=== PATIENT | male | born 1955 | race Caucasian/White ===

== ENCOUNTER 2016-08-25 14:30 | Inpatient (IN) | payer OTHER ==
[~2016-08-25] VITALS: Ht 165.1 cm; Wt 48.6 kg
[~2016-08-25 14:30] MED LIST: ALBU18HF INHALATION; BUDE6HFA INHALATION; PANT40TA3 PO; PRED20TA PO; TIOT18CA INHALATION
[2016-08-25] MEDS ORDERED: METHYLPREDNISOLONE 125 MG INJ IV STA (14:32)
[2016-08-25] MEDS ORDERED: ALBUTEROL 0.5% (NEB) 2.5 MG/0.5 ML AMP INH STA (14:32)
[2016-08-25] MEDS ORDERED: IPRATROPIUM (NEB) 0.5 MG/2.5 ML AMP INH STA (14:32)
--- NOTE | 2016-08-25 14:36 | ERD ---
ER Documentation Chief Complaint Date/Time DATE: 08/25/16 TIME: 14:34 Chief Complaint HPI Patient is a 61-year-old male who presents with gradual onset constant moderate to severe shortness of breath associated with chest tightness and pain with deep inspiration for approximately 1 hour. The patient states that he has history of emphysema and "weak heart". Patient has been using home nebulizers without relief. Patient continues to smoke 1 pack of cigarettes per day. He reports coughing up a small amount of yellow-green sputum, having intermittent fevers, but no fever for the last 2 days. He denies chest pain at rest. Denies hemoptysis. ROS All systems reviewed and are negative except as per history of present illness. Medications Home Meds Reported Medications Budesonide-Formoterol Fumarate* (Symbicort*) 160-4.5 Hfa.aer.ad, 2 PUFF INHALATION BID, #1 EACH 11/24/15 Tiotropium [place]* (Spiriva*) 18 Mcg Cap.w.dev, 1 CAP INHALATION DAILY, #30 CAP 11/24/15 Pantoprazole* (Protonix*) 40 Mg Tablet.dr, 40 MG PO DAILY, TAB 11/24/15 Albuterol Sulfate* (Ventolin HFA*) 18 Gm Hfa.aer.ad, 2 PUFF INHALATION Q6H, #1 INHALER 11/24/15 Discontinued Scripts Prednisone* (Prednisone*) 20 Mg Tab, 40 MG PO DAILY, #4 TAB Prov:TOMABA DO 01/11/16 Albuterol Sulfate* (Ventolin HFA*) 18 Gm Hfa.aer.ad, 2 PUFF INHALATION Q4H, #1 INHALER Prov:ABA SANTOS DO 01/11/16 Allergies Allergies: Coded Allergies: No Known Allergy (Unverified , 08/25/16) PMhx/Soc Past medical history: Emphysema, unknown cardiac history (denies PA or CHF) Past surgical history: Remote history of leg surgery Social history: Smokes 1 pack of cigarettes per day, denies alcohol or illicit drugs. Hx Alcohol Use: Yes Hx Substance Use: No Hx Tobacco Use: Yes FmHx Family History: No coronary disease, No diabetes Physical Exam Vitals Vital Signs Date Time Temp Pulse Resp B/P Pulse Ox O2 Delivery O2 Flow Rate FiO2 08/25/16 18:03 104 20 126/88 100 Mask 15.0 08/25/16 17:22 104 19 92 21 08/25/16 17:07 104 20 144/84 92 Room Air 08/25/16 15:09 120 20 100 Mask 15.0 08/25/16 15:02 Simple Mask 15 08/25/16 15:02 Simple Mask 15.0 08/25/16 14:49 120 19 94 21 08/25/16 14:47 98.0 120 30 155/104 99 Physical Exam Const: Alert, in moderate distress Head: Atraumatic Eyes: Normal Conjunctiva, no pallor or icterus ENT: Normal External Ears, Nose and Mouth. Mucous membranes moist Neck: Full range of motion..~ No meningismus. No JVD Resp: Significantly increased work of breathing, speaks in 3 word sentences, prolonged expiration, supraclavicular retractions, tripoding, diffuse wheezes Cardio: Regular rate and rhythm, no murmurs Abd: Soft, non tender, non distended. Normal bowel sounds Skin: No petechiae or rashes Back: No midline or flank tenderness Ext: No cyanosis, or edema Neur: Awake and alert, cranial nerves II through XII intact bilaterally, moves and feels 4 extremities appropriately. Psych: Normal Mood and Affect Results 24 hrs Laboratory Tests Test 08/25/16 15:26 Blood Gas Specimen Source Blood venous Arterial Blood Date Drawn 08/25/2016 3:48:37 PM Arterial Blood pH (Temp corrected) 7.409 Arterial Blood pCO2 (Temp correct) 50.5mmhg Arterial Blood pO2 (Temp corrected) 42.2mmHG Arterial Blood HCO3 31.2mmol/L Arterial Blood Base Excess 5.2mmol/L Arterial Blood Oxygen Saturation 76.2mmHG Turner Test N/A Arterial Blood Gas Puncture Site OTHER Arterial Blood Carboxyhemoglobin 2.2% Arterial Blood Methemoglobin 0.4% Blood Gas A-a O2 Differential 177.7mmHg Oxyhemoglobin Percent 74.2% Total Hemoglobin 16.4g/dl Blood Gas Temperature 37.0C Blood Gas Modality MASK - SIMPLE FiO2 39.0% Blood Gas Critical Value Read Back [facility] Blood Gas Notified Whom [facility] Blood Gas Notified Time 08/25/2016 3:54:02 PM Current Medications Medications (Trade) Dose Ordered Sig/Michael Route PRN Reason Start Time Stop Time Status Last Admin Dose Admin Ipratropium [place] (Atrovent 0.02% (Neb)) 0.5 mg ONCE STAT INH 08/25/16 14:32 08/25/16 14:34 DC 08/25/16 14:43 Albuterol (Proventil 0.5% (Neb)) 15 mg ONCE STAT INH 08/25/16 14:32 08/25/16 14:34 DC 08/25/16 14:43 Methylprednisolone Sodium Succinate 125 mg 125 mg ONCE STAT IV 08/25/16 14:32 08/25/16 14:34 DC 08/25/16 14:51 Magnesium Sulfate (Magnesium Sulfate 2 Gm/50 ml) 50 ml @ 25 mls/hr ONCE ONCE IVPB 08/25/16 15:00 08/25/16 16:59 DC 08/25/16 14:51 Morphine Sulfate (morphine) 4 mg ONCE STAT IV 08/25/16 15:46 08/25/16 15:47 DC 08/25/16 15:53 Albuterol (Proventil 0.083% (Neb)) 5 mg ONCE STAT HHN 08/25/16 17:08 08/25/16 17:09 DC 08/25/16 17:20 Ondansetron HCl (Zofran Inj) 4 mg ER BRIDGE PRN IV NAUSEA AND/OR VOMITING 08/25/16 18:00 08/26/16 17:59 Acetaminophen 650 mg 650 mg ER BRIDGE PRN PO MILD PAIN/FEVER 08/25/16 18:00 08/26/16 17:59 Azithromycin (Zithromax 500mg/ NS (Pmx)) 250 ml @ 250 mls/hr ONCE ONCE IVPB 08/25/16 18:00 08/25/16 18:59 08/25/16 18:00 IV Flush (NS 3 ml) 3 ml PER PROTOCOL IV 08/25/16 18:30 UNV Ondansetron HCl (Zofran Inj) 4 mg Q6H PRN IV NAUSEA AND/OR VOMITING 08/25/16 18:30 UNV Acetaminophen (Tylenol Tab) 650 mg Q6H PRN PO PAIN LEVEL 1-3 OR FEVER 08/25/16 18:30 UNV Acetaminophen/ Hydrocodone Bitart ([place] (5/325)) 1 tab Q6H PRN PO MODERATE PAIN LEVEL 4-6 08/25/16 18:30 UNV Morphine Sulfate (morphine) 2 mg Q4H PRN IV SEVERE PAIN LEVEL 7-10 08/25/16 18:30 UNV Docusate Sodium (Colace) 100 mg Q12H PRN PO CONSTIPATION 08/25/16 18:30 UNV Magnesium Hydroxide (Milk Of Mag) 30 ml DAILY PRN PO CONSTIPATION 08/25/16 18:30 UNV Sodium Biphosphate/ Sodium Phosphate (Fleet Enema) 133 ml DAILY PRN [place] CONSTIPATION 08/25/16 18:30 UNV Heparin Sodium (Porcine) 5000 unit 5,000 unit Q12 SC 08/25/16 21:00 UNV Sodium Chloride (1/2 NS) 1,000 ml @ 75 mls/hr [id number] IV 08/25/16 18:04 UNV Lorazepam (Ativan) 0.5 mg Q6H PRN IV ANXIETY 08/25/16 18:30 UNV Albuterol/ Ipratropium 3 ml 3 ml Q4H RESP THERAPY HHN 08/25/16 21:00 UNV Levofloxacin/ Dextrose (Levaquin 750 Mg/ D5W 150 ml (Pmx)) 150 ml @ 100 mls/hr DAILY IVPB 08/26/16 09:00 UNV Hydralazine HCl (Apresoline) 10 mg Q6H PRN IV ELEVATED BLOOD PRESSURE 08/25/16 18:30 UNV Clonidine (Catapres) 0.1 mg Q6H PRN PO ELEVATED BLOOD PRESSURE 08/25/16 18:30 UNV Nitroglycerin (Nitroglycerin (Sl Tab) 0.4 Mg) 1 tab Q5M PRN SL ANGINA 08/25/16 18:30 UNV Pantoprazole (Protonix Tab) 40 mg DAILY PO 08/26/16 09:00 UNV Miscellaneous Information 2 puff BID INHALATION 08/25/16 21:00 UNV Methylprednisolone Sodium Succinate (Solu-Medrol) 80 mg Q6 IV 08/25/16 18:30 UNV Procedures/MDM EKG read by me: Time 1458, rate 114 Rhythm: Sinus tachycardia [place]: Normal Intervals: Normal ST-T waves: no ischemic changes Ectopy: No Q-waves: No Impression: Sinus tachycardia, biatrial enlargement, no arrhythmia or ischemia MDM: Patient is a 61-year-old male with emphysema who presents with acute dyspnea. He has signs of prolonged expiration and diffuse wheezes. There is no infiltrate on chest x-ray. EKG is nonischemic and pain is suggestive of chest wall pain. There are no features suggestive of PE. Patient was treated aggressively with continuous nebs for more than 1 hour, IV steroids, and magnesium. He was given azithromycin empirically. VBG shows mild CO2 retention. Serial examinations were performed, and the patient is somewhat improved but still has significant subjective dyspnea and prolonged expirations. O2 sat on room air is 90-91%. I discussed the case with Dr. Jason, who will admit the patient for further treatment. Critical Care: Time: 35 minutes exlcuding all billable procedures. Treatments/Evaluations: Close monitoring and treatment of unstable vital signs, cardiorespiratory, and neurologic status, while maintaining tight balance of fluid, respiratory, and cardiac interventions. Departure Diagnosis: Primary Impression: COPD exacerbation Condition: DAREN Hernandez MD August 25, 2016 14:36
[2016-08-25] MEDS ORDERED: MAGNESIUM SULFATE 2 GM/50 ML 50 ML IVPB ONE (15:00)
--- NOTE | 2016-08-25 15:02 | RADRPT ---
PROCEDURE: XR Chest. CLINICAL INDICATION: Shortness of breath TECHNIQUE: Single frontal view of the chest was obtained COMPARISON: 01/11/2016 FINDINGS: The heart and mediastinum are within normal limits. The lungs remain hyperinflated. The lungs are otherwise clear. There is no pleural effusion or pneumothorax. The bones and soft tissue show no acute change. IMPRESSION: Stable pulmonary hyperinflation. Otherwise, no significant abnormalities are identified. RPTAT:AAJJ Physician Patrick Date Time Electronically viewed and signed by El Joseph Physician on 08/25/2016 15:02 PATRICK/
[2016-08-25] MEDS ORDERED: morphine 4 MG/ML VIAL IV STA (15:46)
[2016-08-25 15:54] LABS: AADO2 Arterial 177.7 mmHg (7.0-24.0); Arterial Base Excess 5.2 mmol/L (-3.0-3); Arterial COHb 2.2 % (0.0-3.0); Arterial Fraction of Oxyhgb 74.2 % (93.0-99.0); Arterial HCO3 31.2 mmol/L (22.0-26.0); Arterial MetHb 0.4 % (0.0-1.5); Arterial Total Hemglobin 16.4 g/dl (12.0-18.0); MODE MASK - SIMPLE; Sample Type Blood venous
[2016-08-25] MEDS ORDERED: ALBUTEROL 0.083% (NEB) 2.5 MG/3 ML AMP HHN STA (17:08)
[2016-08-25] MEDS ORDERED: AZITHROMYCIN 500MG/NS (PMX) 250 ML IVPB ONE (18:00)
[2016-08-25] MEDS ORDERED: ONDANSETRON 4 MG INJ IV PRN ×2 (18:00→18:30)
[2016-08-25] MEDS ORDERED: ACETAMINOPHEN 325 MG TAB PO PRN ×2 (18:00→18:30)
[2016-08-25 18:14] LABS: ADD SCAN DIFF NO
[2016-08-25 18:17] LABS: ABNORMAL IP MESSAGE 1; BASOPHIL # 0.1 10^3/ul (0.0-0.1); BASOPHILS % 0.5 % (0.0-2.0); HEMATOCRIT 46.2 % (42.0-52.0); HEMOGLOBIN 15.6 g/dl (14.0-18.0); LYMPHOCYTES # 3.6 10^3/ul (0.8-2.9); LYMPHOCYTES % 17.5 % (15.0-51.0); MEAN CORPUSCULAR HEMOGLOBIN 31.8 pg (29.0-33.0); MEAN CORPUSCULAR HGB CONC 33.8 g/dl (32.0-37.0); MEAN CORPUSCULAR VOLUME 94.3 fl (82.0-101.0); MEAN PLATELET VOLUME 9.3 fl (7.4-10.4); MONOCYTES % 9.5 % (0.0-11.0); NEUTROPHIL # 14.6 10^3/ul (1.6-7.5); NEUTROPHILS % 70.5 % (39.0-77.0); PLATELET COUNT 354 10^3/UL (140-415); RED CELL DISTRIBUTION WIDTH 14.3 % (11.5-14.5); WHITE BLOOD COUNT 20.7 10^3/ul (4.8-10.8)
[2016-08-25 18:23] LABS: CALCIUM 8.6 mg/dl (8.4-10.2); CREATININE 0.72 mg/dl (0.61-1.24); POTASSIUM 4.6 mmol/L (3.5-5.1)
[2016-08-25] MEDS ORDERED: DOCUSATE SODIUM 100 MG CAP PO PRN (18:30)
[2016-08-25] MEDS ORDERED: MAGNESIUM HYDROXIDE 30ML CUP PO PRN (18:30)
[2016-08-25] MEDS ORDERED: hydrALAzine 20 MG INJ IV PRN (18:30)
[2016-08-25] MEDS ORDERED: NA PHOSPHATE/BIPHOS 133 ML ENEMA PR PRN (18:30)
[2016-08-25] MEDS ORDERED: NITROGLYCERIN (SL) 0.4 MG TAB SL PRN (18:30)
[2016-08-25] MEDS ORDERED: NACL 0.9% 3 ML SYG IV SCH (18:30)
--- NOTE | 2016-08-25 20:26 | HP ---
DATE OF ADMISSION: 08/25/2016 CHIEF COMPLAINT: This is a 61-year-old with chief complaint of shortness of breath. HISTORY OF PRESENT ILLNESS: A 61-year-old male with past medical history of COPD and a longstanding smoking history, still a current smoker, who has been having shortness of breath and some chest tig htness that has been going on for the last 24 hours. He had some nausea symptoms as well and some p ain with deep inspiration for about 1 hour as well. He apparently has been using home nebulizer wit hout relief. Continues to smokes cigarettes daily. He also had some mild yellow-green sputum as we ll. Denies any headache, dizziness, or loss of consciousness. No upper or lower GI bleeding. No f bobby or chills. No diarrhea or constipation. When he came in today, he was given breathing treatm ents as well as Solu-Medrol and magnesium. He was found to have significant wheezing on exam and si gns of COPD exacerbation. PAST MEDICAL HISTORY: As above. ALLERGIES: NO KNOWN DRUG ALLERGIES. MEDICATIONS AT HOME: 1. Ventolin HFA inhaled q.6h. 2. Spiriva inhaled daily. 3. Symbicort 2 puffs inhaled b.i.d. 4. Protonix 40 mg daily. PAST SURGICAL HISTORY: Had some kind of leg surgery many years ago. FAMILY HISTORY: Noncontributory. SOCIAL HISTORY: Smokes 1 pack of cigarettes a day for the last 50 years. Denies any IV drug abuse. He does drink alcohol socially. PHYSICAL EXAMINATION: VITAL SIGNS: T-max 98.0, pulse 104 to 120, respirations 19 to 30, blood pressure 126 to 150 systoli c over 88 to 104 and saturating at 92% on room air. GENERAL: The patient is lying in bed in mild distress but alert. HEENT: Pupils equal, round, react to light. Extraocular muscles intact. NECK: Supple, no thyromegaly. LUNGS: Increased work of breathing. There are some wheezes heard bilaterally in the bases. CARDIOVASCULAR: S1, S2 heard. No rubs or gallops. ABDOMEN: Soft, nontender, nondistended. Normal bowel sounds. No rebound or guarding. MUSCULOSKELETAL: No lower extremity bilaterally. NEUROLOGIC: No focal deficits. LABORATORIES: WBC 20.7, hemoglobin 15.6, hematocrit 46.2, platelets of 354. The basic metabolic pa silvio was normal. IMAGING: Chest x-ray showed this stable pulmonary hyperinflation, otherwise no significant abnormal ities. ASSESSMENT AND PLAN: A 61-year-old coming in a chronic obstructive pulmonary disease exacerbation. 1. Chronic obstructive pulmonary disease. Admit the patient to med/surg floor, put him on DuoNeb t reatments, IV steroids, and antibiotics given his leukocytosis. Check TSH, A1c, lipid panel, and IV fluids as well. Check labs in the morning. 2. Smoking history. He is counseled about cessation. We will put him on nicotine patch. 3. Gastrointestinal prescription: Proton pump inhibitors. 4. Deep venous thrombosis prophylaxis: Heparin subcutaneously. Dictated By: SRAVANI LEWIS Conf#: [id number] DID#: [id number]
[2016-08-25 20:44] VITALS: TEMP 98
[2016-08-25] MEDS ORDERED: NON-FORMULARY/PATIENT OWN MED (Budesonide-Formoterol Fumarate* (Symbicort*) 2 PUFF) INHALATION SCH (21:00)
[2016-08-25 21:31] VITALS: PULSE 112
[2016-08-25] MEDS: ALBUTEROL/IPRATROPIUM (NEB) 3 ML AMP HHN SCH (21:41)
[2016-08-25 21:45] VITALS: Ht 165.1 cm; Wt 48.6 kg
[2016-08-25] MEDS: morphine 2 MG INJ IV PRN (21:45)
[2016-08-25] MEDS: METHYLPREDNISOLONE 125 MG INJ IV SCH ×2 (21:47→22:37)
[2016-08-25] MEDS: LORAZEPAM 2 MG INJ IV PRN (21:55)
[2016-08-25] MEDS: SALMETEROL/FLUTICASONE 250/50 INHA INH SCH (22:04)
[2016-08-25] MEDS: HEPARIN 5,000 UNIT/0.5 ML VIAL SC SCH (22:04)
[2016-08-25] MEDS: NICOTINE (21 MG/24 HR) PATCH TRANSDERM SCH (22:04)
[2016-08-25] MEDS: SOD CHLORIDE 0.45% 1,000 ML IV SCH (22:30)
[2016-08-25 23:05] VITALS: BP 120/64; RESP 20
[2016-08-26] VITALS (11 sets, daily range): BP systolic 113–125; BP diastolic 65–74; PULSE 86–104; RESP 18–20
[2016-08-26] MEDS: ALBUTEROL/IPRATROPIUM (NEB) 3 ML AMP HHN SCH ×6 (00:44→20:12)
[2016-08-26] MEDS: PANTOPRAZOLE (EC) 40 MG TAB PO SCH (05:36)
[2016-08-26] MEDS: METHYLPREDNISOLONE 125 MG INJ IV SCH ×3 (05:36→17:30)
[2016-08-26] MEDS: morphine 2 MG INJ IV PRN ×5 (05:41→22:07)
[2016-08-26] MEDS: SOD CHLORIDE 0.45% 1,000 ML IV SCH ×2 (06:17→17:30)
[2016-08-26] MEDS: HEPARIN 5,000 UNIT/0.5 ML VIAL SC SCH ×2 (07:48→20:59)
[2016-08-26 07:54] LABS: ADD SCAN DIFF NO
[2016-08-26 07:58] LABS: CHOL/HDL RATIO 1.9 RATIO
[2016-08-26 07:59] LABS: BASOPHILS % 0.1 % (0.0-2.0); HEMOGLOBIN 13.5 g/dl (14.0-18.0); LYMPHOCYTES # 0.9 10^3/ul (0.8-2.9); LYMPHOCYTES % 6.2 % (15.0-51.0); MEAN CORPUSCULAR HEMOGLOBIN 31.4 pg (29.0-33.0); MEAN CORPUSCULAR HGB CONC 34.6 g/dl (32.0-37.0); MEAN CORPUSCULAR VOLUME 90.7 fl (82.0-101.0); MEAN PLATELET VOLUME 8.9 fl (7.4-10.4); MONOCYTE # 0.5 10^3/ul (0.3-0.9); MONOCYTES % 3.4 % (0.0-11.0); NEUTROPHIL # 12.7 10^3/ul (1.6-7.5); NEUTROPHILS % 88.1 % (39.0-77.0); PLATELET COUNT 304 10^3/UL (140-415); WHITE BLOOD COUNT 14.5 10^3/ul (4.8-10.8)
[2016-08-26] MEDS: SALMETEROL/FLUTICASONE 250/50 INHA INH SCH ×2 (08:00→20:54)
[2016-08-26 08:26] LABS: THYROID STIMULATING HORMONE 0.182 MIU/L (0.465-4.680)
[2016-08-26] MEDS: NICOTINE (21 MG/24 HR) PATCH TRANSDERM SCH (09:00)
[2016-08-26 09:19] LABS: CALCIUM 9.2 mg/dl (8.4-10.2); CREATININE 0.86 mg/dl (0.61-1.24); MAGNESIUM 2.3 mg/dl (1.7-2.5); PHOSPHORUS 4.5 mg/dl (2.5-4.9); POTASSIUM 4.6 mmol/L (3.5-5.1)
[2016-08-26] MEDS: LEVOFLOXACIN 750MG/D5W (PMX) 150 ML IVPB SCH (09:35)
[2016-08-26] MEDS ORDERED: ALBUTEROL/IPRATROPIUM (NEB) 3 ML AMP HHN PRN (12:00)
[2016-08-26] MEDS: LORAZEPAM 2 MG INJ IV PRN ×3 (12:07→20:55)
--- NOTE | 2016-08-26 14:36 | PN ---
Date/Time of Note Date/Time of Note DATE: 08/26/16 TIME: 14:34 Assessment/Plan VTE Prophylaxis VTE Prophylaxis Intervention: heparin Lines/Catheters IV [facility] Peripheral IV Assessment/Plan Chief Complaint/Hosp Course ASSESSMENT AND PLAN: 61-year-old coming in a chronic obstructive pulmonary disease exacerbation. 1. Chronic obstructive pulmonary disease - slowly improving - continue DuoNeb treatments, IV steroids, and antibiotics given his leukocytosis. - f/u TSH, A1c, lipid panel, and IV fluids as well. Check labs in the morning. 2. Smoking history - nicotine patch. 3. Gastrointestinal prescription: Proton pump inhibitors. 4. Deep venous thrombosis prophylaxis: Heparin subcutaneously. Problems: Subjective 24 Hr Interval Summary Free Text/Dictation Pt has some less SOB. Exam/Review of Systems Vital Signs Vitals Vital Signs Date Time Temp Pulse Resp B/P Pulse Ox O2 Delivery O2 Flow Rate FiO2 08/26/16 13:20 100 20 95 Nasal Cannula 2.0 08/26/16 12:18 97.9 117/74 08/26/16 00:45 21 Intake and Output 08/25/16 08/25/16 08/26/16 15:00 23:00 07:00 Intake Total 300 ml 30 ml Balance 300 ml 30 ml Exam GENERAL: The patient is lying in bed in mild distress but alert. HEENT: Pupils equal, round, react to light. Extraocular muscles intact. NECK: Supple, no thyromegaly. LUNGS: less wheezes heard bilaterally in the bases. CARDIOVASCULAR: S1, S2 heard. No rubs or gallops. ABDOMEN: Soft, nontender, nondistended. Normal bowel sounds. No rebound or guarding. MUSCULOSKELETAL: No lower extremity bilaterally. NEUROLOGIC: No focal deficits. Results Result Diagram: 08/26/16 0651 08/26/16 0651 Results 24 hrs Laboratory Tests Test 08/25/16 14:47 08/25/16 15:26 08/26/16 06:51 White Blood Count 20.7 #H 14.5 #H Red Blood Count 4.90 4.30 L Hemoglobin 15.6 13.5 L Hematocrit 46.2 39.0 L Mean Corpuscular Volume 94.3 90.7 Mean Corpuscular Hemoglobin 31.8 31.4 Mean Corpuscular Hemoglobin Concent 33.8 34.6 Red Cell Distribution Width 14.3 14.0 Platelet Count 354 304 Mean Platelet Volume 9.3 # 8.9 Neutrophils % 70.5 88.1 H Lymphocytes % 17.5 6.2 L Monocytes % 9.5 3.4 Eosinophils % 0.0 0.0 Basophils % 0.5 0.1 Nucleated Red Blood Cells % 0.0 0.0 Neutrophils # 14.6 H 12.7 H Lymphocytes # 3.6 H 0.9 Monocytes # 2.0 H 0.5 Eosinophils # 0.0 0.0 Basophils # 0.1 0.0 Nucleated Red Blood Cells # 0.0 0.0 Sodium Level 136 131 L Potassium Level 4.6 4.6 Chloride Level 101 97 Carbon Dioxide Level 29 28 Anion Gap 11 11 Blood Urea Nitrogen 22 H 32 H Creatinine 0.72 0.86 Glucose Level 68 L 158 Calcium Level 8.6 9.2 Free Thyroxine 1.30 Blood Gas Specimen Source Blood venous Arterial Blood Date Drawn 08/25/2016 3:48:37 PM Arterial Blood pH (Temp corrected) 7.409 Arterial Blood pCO2 (Temp correct) 50.5 H Arterial Blood pO2 (Temp corrected) 42.2 *L Arterial Blood HCO3 31.2 H Arterial Blood Base Excess 5.2 H Arterial Blood Oxygen Saturation 76.2 L Turner Test N/A Arterial Blood Gas Puncture Site OTHER Arterial Blood Carboxyhemoglobin 2.2 Arterial Blood Methemoglobin 0.4 Blood Gas A-a O2 Differential 177.7 H Oxyhemoglobin Percent 74.2 L Total Hemoglobin 16.4 Blood Gas Temperature 37.0 Blood Gas Modality MASK - SIMPLE FiO2 39.0 Blood Gas Critical Value Read Back [facility] Blood Gas Notified Whom [facility] Blood Gas Notified Time 08/25/2016 3:54:02 PM Hemoglobin A1c 6.1 H Phosphorus Level 4.5 Magnesium Level 2.3 Triglycerides Level 76 Cholesterol Level 194 LDL Cholesterol, Calculated 78 HDL Cholesterol 101 H Cholesterol/HDL Ratio 1.9 Thyroid Stimulating Hormone (TSH) 0.182 L Medications Medications Current Medications Ondansetron HCl (Zofran Inj) 4 mg Q6H PRN IV NAUSEA AND/OR VOMITING; Start at 18:30 Acetaminophen (Tylenol Tab) 650 mg Q6H PRN PO PAIN LEVEL 1-3 OR FEVER; Start at 18:30 Acetaminophen/ Hydrocodone Bitart ([place] (5/325)) 1 tab Q6H PRN PO MODERATE PAIN LEVEL 4-6; Start 08/25/16 at 18:30 Morphine Sulfate (morphine) 2 mg Q4H PRN IV SEVERE PAIN LEVEL 7-10 Last administered on 08/26/16 13:46; Admin Dose 2 MG; Start 08/25/16 at 18:30 Docusate Sodium (Colace) 100 mg Q12H PRN PO CONSTIPATION; Start 08/25/16 at 18: 30 Magnesium Hydroxide (Milk Of Mag) 30 ml DAILY PRN PO CONSTIPATION; Start at 18:30 Sodium Biphosphate/ Sodium Phosphate (Fleet Enema) 133 ml DAILY PRN [place] CONSTIPATION; Start 08/25/16 at 18:30 Heparin Sodium (Porcine) 5000 unit 5,000 unit Q12 SC ; Start 08/25/16 at 21:00 Sodium Chloride (1/2 NS) 1,000 ml @ 75 mls/hr [id number] IV Last administered on 08/25/16 22:30; Admin Dose 75 MLS/HR; Start 08/25/16 at 18:04 Lorazepam 0.5 mg 0.5 mg Q6H PRN IV ANXIETY Last administered on 08/26/16 12:07 ; Admin Dose 0.5 MG; Start 08/25/16 at 18:30 Levofloxacin/ Dextrose (Levaquin 750 Mg/ D5W 150 ml (Pmx)) 150 ml @ 100 mls/hr DAILY IVPB Last administered on 08/26/16 09:35; Admin Dose 100 MLS/HR; Start 08/26/16 at 09:00 Hydralazine HCl (Apresoline) 10 mg Q6H PRN IV ELEVATED BLOOD PRESSURE; Start at 18:30 Clonidine (Catapres) 0.1 mg Q6H PRN PO ELEVATED BLOOD PRESSURE; Start 08/25/16 at 18:30 Nitroglycerin (Nitroglycerin (Sl Tab) 0.4 Mg) 1 tab Q5M PRN SL ANGINA Last administered on 08/25/16 20:42; Admin Dose 1 TAB; Start 08/25/16 at 18:30 Pantoprazole (Protonix Tab) 40 mg DAILY@06 PO Last administered on 08/26/16 05 :36; Admin Dose 40 MG; Start 08/26/16 at 06:00 Methylprednisolone Sodium Succinate (Solu-Medrol) 80 mg Q6 IV Last administered on 08/26/16 12:00; Admin Dose 80 MG; Start 08/25/16 at 18:30 Nicotine (Nicoderm 21 Mg/ 24hr) 1 patch DAILY TRANSDERM ; Start 08/25/16 at 19: 30 Salmeterol Xinafoate/ Fluticasone (Advair 250/50 Diskus) 1 inh BID INH Last administered on 08/26/16 08:00; Admin Dose 1 INH; Start 08/25/16 at 21:00 SRAVANI LINDA August 26, 2016 14:36
--- NOTE | 2016-08-26 17:18 | RADRPT ---
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 Physician: SRAVANI LINDA Quality: Technically Difficult Study Procedures: Transthoracic echocardiogram with 2D, M-Mode, and Doppler examination. Indications: Shortness of breath. 2D/M Mode Doppler Measurement Value Normal Ranges Measurement Value Normal Ranges AoR Diam MM 3.2 cm AV Peak Erlin 0.9 m/sec LVIDd 2D 4.3 3.5 - 5.6 cm AV Peak PG 3.3 mmHg LVIDs 2D 3.2 2.1 - 4.1 cm LVOT Peak [place]lin 0.7 m/sec LVPWd 2D 0.6 0.6 - 1.1 cm LVOT Peak PG 1.9 mmHg IVSd 2D 0.8 0.6 - 1.1 cm MV E Peak Erlin 0.6 m/sec EDV 2D 82.8 cm3 MV A Peak Erlin 0.8 m/sec ESV 2D 33.9 cm3 MV E/A 0.7 LA Dimen 2D 2.8 2.3 - 4.0 cm MV Decel Time 238 msec MV Decel [place] 2 MV E/A 0.7 PV Peak Erlin 1.0 m/sec PV Peak PG 4.0 mmHg Findings Left Ventricle: Normal left ventricular cavity size. Normal left ventricular wall thickness. Ejection fraction is visually estimated at 50 %. Tissue Doppler/Mitral Doppler indices are within normal limits. Right Ventricle: Normal right ventricular size. Normal right ventricular systolic function. Left Atrium: The left atrium is normal in size. Right Atrium: The right atrium is normal in size. Atrial Septum: Normal atrial septum. Mitral Valve: Normal appearance of the mitral valve. No mitral valve regurgitation is seen. Aortic Valve: Normal appearance of the aortic valve. No significant aortic stenosis or insufficiency. Tricuspid Valve: Normal appearance and function of the tricuspid valve with trace physiologic regurgitation. Unable to obtain RVSP due to minimal presence of tricuspid regurgitation. Pulmonic Valve: Normal pulmonic valve appearance, imaged from subcostal images. No evidence of pulmonic regurgitation. Pericardium: Normal pericardium with no significant pericardial effusion. Aorta: Normal aortic root. IVC: Normal size and normal respiratory collapse consistent with normal right atrial pressure. Pulmonary Artery: Normal pulmonary artery size. Conclusions 1.Normal left ventricular cavity size. Normal left ventricular wall thickness. Ejection fraction is visually estimated at 50 %. Tissue Doppler/Mitral Doppler indices are within normal limits. 2.No significant valvular stenosis or regurgitation seen. 3.Unable to obtain RVSP due to minimal presence of tricuspid regurgitation. RA pressure is 3 mmHg. Electronically Signed By: Jeus Lal 26-Aug-2016 17:16:58 -0700 Patient Name: HILDA GIBSON Study Date: 26-Aug-2016 [id number]
[2016-08-26] MEDS: HYDROCODONE/APAP (5/325) TAB PO PRN (20:55)
[2016-08-27] VITALS (13 sets, daily range): BP systolic 107–124; BP diastolic 55–74; PULSE 95–109; RESP 18–20
[2016-08-27] MEDS: METHYLPREDNISOLONE 125 MG INJ IV SCH ×4 (00:35→17:46)
[2016-08-27] MEDS: ALBUTEROL/IPRATROPIUM (NEB) 3 ML AMP HHN SCH ×6 (01:24→20:06)
[2016-08-27] MEDS: morphine 2 MG INJ IV PRN ×5 (02:05→20:46)
[2016-08-27] MEDS: PANTOPRAZOLE (EC) 40 MG TAB PO SCH (04:19)
[2016-08-27] MEDS: HYDROCODONE/APAP (5/325) TAB PO PRN (04:19)
[2016-08-27] MEDS: LEVOFLOXACIN 750MG/D5W (PMX) 150 ML IVPB SCH (08:00)
[2016-08-27] MEDS: LORAZEPAM 2 MG INJ IV PRN ×2 (08:00→15:14)
[2016-08-27] MEDS: NICOTINE (21 MG/24 HR) PATCH TRANSDERM SCH ×2 (08:01→12:12)
[2016-08-27] MEDS: SALMETEROL/FLUTICASONE 250/50 INHA INH SCH ×2 (08:01→20:46)
[2016-08-27] MEDS: HEPARIN 5,000 UNIT/0.5 ML VIAL SC SCH ×2 (08:01→20:46)
[2016-08-27 08:19] LABS: ADD SCAN DIFF NO
[2016-08-27 08:28] LABS: ABNORMAL IP MESSAGE 1; HEMATOCRIT 36.3 % (42.0-52.0); HEMOGLOBIN 12.6 g/dl (14.0-18.0); MEAN CORPUSCULAR HEMOGLOBIN 32.2 pg (29.0-33.0); MEAN CORPUSCULAR HGB CONC 34.7 g/dl (32.0-37.0); MEAN CORPUSCULAR VOLUME 92.8 fl (82.0-101.0); MEAN PLATELET VOLUME 8.8 fl (7.4-10.4); PLATELET COUNT 254 10^3/UL (140-415); RED BLOOD COUNT 3.91 10^6/ul (4.70-6.10); RED CELL DISTRIBUTION WIDTH 13.9 % (11.5-14.5); WHITE BLOOD COUNT 29.2 10^3/ul (4.8-10.8)
[2016-08-27 08:45] LABS: POTASSIUM 4.6 mmol/L (3.5-5.1)
[2016-08-27 08:48] LABS: CREATININE 0.69 mg/dl (0.61-1.24)
[2016-08-27] MEDS: SOD CHLORIDE 0.45% 1,000 ML IV SCH ×2 (09:42→20:47)
[2016-08-27 09:49] LABS: LYMPHOCYTES # 0.9 10^3/ul (0.8-2.9); MONOCYTE # 1.5 10^3/ul (0.3-0.9); NEUTROPHIL # 26.9 10^3/ul (1.6-7.5)
--- NOTE | 2016-08-27 17:07 | PN ---
DATE: 08/27/2016 TIME OF EVALUATION: 1600 hours. SUBJECTIVE: Still having significant shortness of breath. Complains of some left chest wall pain. OBJECTIVE DATA: VITAL SIGNS: Temperature 98.2, pulse rate 95, respiratory rate 18, blood pressure 110/63, oxygen saturation 90% on low flow O2. GENERAL: This is a frail-looking elderly male lying in bed in mild to moderate respiratory distress. HEENT: Head normocephalic and atraumatic. Eyes: Anicteric sclerae. Conjunctivae clear. ENT: Nasal septum is midline. Oral mucosa is moist. NECK: Supple. No JVD noticed. RESPIRATORY: Bilateral diminished breath sounds. Bilateral coarse rales heard. Use of accessory muscles of respiration. CARDIAC: Regular rate and rhythm. S1, S2. ABDOMEN: Soft, nontender and nondistended. Bowel sounds positive in all 4 quadrants. GENITOURINARY: Deferred. EXTREMITIES: No cyanosis. Clubbing of the bilateral digits of upper extremities. No edema. Peripheral pulses palpable. NEUROLOGIC: The patient is awake, alert and oriented. Cranial nerves are grossly intact. LABORATORY AND DIAGNOSTIC DATA: WBC 29.2, hemoglobin 12.6, hematocrit 36.3, platelet count 254. Sodium 128, potassium 4.6, chloride 90, carbon dioxide 20, anion gap 14, BUN 25, creatinine 0.6 and glucose 142, calcium 9.0. ASSESSMENT AND PLAN: 1. Chronic obstructive pulmonary disease exacerbation. Continue inhaled bronchodilators. Continue tapering dose of steroids. 2. Leukocytosis, most probably secondary to steroid use. Continue empiric antibiotics for any underlying acute bronchitis. 3. Nicotine use. Continue nicotine patch. 4. Hyponatremia. Etiology is unclear. Continue IV fluid normal saline. 5. Acute on chronic hypercapnic and hypoxic respiratory failure secondary to chronic obstructive pulmonary disease exacerbation. Continue inhaled bronchodilators. Continue supplemental oxygen. 6. Fluid, electrolytes and nutrition. Regular diet. 7. Deep venous thrombosis prophylaxis. Subcutaneous heparin. 8. Gastrointestinal prophylaxis. Proton pump inhibitors. 9. Plan. Continue tapering dose of steroids. Continue inhaled bronchodilators. Continue empiric antibiotics. Case discussed with Dr. Nixon. MILAD NIXON MD, AM/CRISTINA Conf#: [id number] DID#: [id number] [facility]
[2016-08-28] VITALS (11 sets, daily range): BP systolic 104–123; BP diastolic 60–74; PULSE 98–111; RESP 18–19
[2016-08-28] MEDS: METHYLPREDNISOLONE 125 MG INJ IV SCH ×3 (00:36→12:23)
[2016-08-28] MEDS: ALBUTEROL/IPRATROPIUM (NEB) 3 ML AMP HHN SCH ×6 (01:07→20:00)
[2016-08-28] MEDS: LORAZEPAM 2 MG INJ IV PRN ×2 (03:02→20:35)
[2016-08-28] MEDS: PANTOPRAZOLE (EC) 40 MG TAB PO SCH (06:37)
[2016-08-28] MEDS: morphine 2 MG INJ IV PRN ×4 (06:38→23:14)
[2016-08-28 08:16] LABS: ADD SCAN DIFF NO
[2016-08-28 08:23] LABS: ABNORMAL IP MESSAGE 1; BASOPHILS % 0.1 % (0.0-2.0); HEMATOCRIT 35.8 % (42.0-52.0); HEMOGLOBIN 12.4 g/dl (14.0-18.0); LYMPHOCYTES # 0.3 10^3/ul (0.8-2.9); LYMPHOCYTES % 1.2 % (15.0-51.0); MEAN CORPUSCULAR HEMOGLOBIN 31.8 pg (29.0-33.0); MEAN CORPUSCULAR HGB CONC 34.6 g/dl (32.0-37.0); MEAN CORPUSCULAR VOLUME 91.8 fl (82.0-101.0); MEAN PLATELET VOLUME 9.3 fl (7.4-10.4); MONOCYTE # 0.8 10^3/ul (0.3-0.9); MONOCYTES % 3.2 % (0.0-11.0); NEUTROPHIL # 23.2 10^3/ul (1.6-7.5); NEUTROPHILS % 94.6 % (39.0-77.0); PLATELET COUNT 243 10^3/UL (140-415); RED CELL DISTRIBUTION WIDTH 13.8 % (11.5-14.5); WHITE BLOOD COUNT 24.5 10^3/ul (4.8-10.8)
[2016-08-28 08:47] LABS: POTASSIUM 4.1 mmol/L (3.5-5.1)
[2016-08-28 08:49] LABS: CREATININE 0.66 mg/dl (0.61-1.24)
[2016-08-28 08:50] LABS: CALCIUM 8.7 mg/dl (8.4-10.2)
[2016-08-28] MEDS: SALMETEROL/FLUTICASONE 250/50 INHA INH SCH ×2 (08:53→20:35)
[2016-08-28] MEDS: NICOTINE (21 MG/24 HR) PATCH TRANSDERM SCH (08:54)
[2016-08-28] MEDS: LEVOFLOXACIN 750MG/D5W (PMX) 150 ML IVPB SCH (08:54)
[2016-08-28] MEDS: HEPARIN 5,000 UNIT/0.5 ML VIAL SC SCH ×2 (08:54→20:35)
[2016-08-28] MEDS: SOD CHLORIDE 0.45% 1,000 ML IV SCH ×3 (08:55→23:14)
--- NOTE | 2016-08-28 14:25 | PN ---
Date/Time of Note Date/Time of Note DATE: 08/28/16 TIME: 14:23 Assessment/Plan VTE Prophylaxis VTE Prophylaxis Intervention: heparin Lines/Catheters IV Catheter Type (from [facility]): Peripheral IV Assessment/Plan Assessment/Plan 1. Chronic obstructive pulmonary disease exacerbation. Continue inhaled bronchodilators. Continue tapering dose of steroids. 2. Leukocytosis, most probably secondary to steroid use. Continue empiric antibiotics for any underlying acute bronchitis. 3. Nicotine use. Continue nicotine patch. 4. Hyponatremia. Etiology is unclear. Continue IV fluid normal saline. 5. Acute on chronic hypercapnic and hypoxic respiratory failure secondary to chronic obstructive pulmonary disease exacerbation. Continue inhaled bronchodilators. Continue supplemental oxygen. 6. Deep venous thrombosis prophylaxis. Subcutaneous heparin. Subjective 24 Hr Interval Summary Free Text/Dictation still with shortness of breath Exam/Review of Systems Vital Signs Vitals Vital Signs Date Time Temp Pulse Resp B/P Pulse Ox O2 Delivery O2 Flow Rate FiO2 08/28/16 12:54 108 20 95 21 08/28/16 11:38 98.6 108/69 08/28/16 08:10 Nasal Cannula 2.0 Intake and Output 08/27/16 08/27/16 08/28/16 15:00 23:00 07:00 Intake Total 500 ml 1150 ml Balance 500 ml 1150 ml Exam Constitutional: alert, oriented, well developed Psych: nl mood/affect, no complaints Head: atraumatic, normocephalic Eyes: EOMI, PERRL, nl conjunctiva, nl lids ENMT: mucosa pink and moist, nl external ears & nose, nl lips & teeth, nl nasal mucosa & septum Neck: non-tender, supple Respiratory: diminished breath sounds, wheezing Cardiovascular: nl pulses, regular rate and rhythm, No S3, No S4, No bruits, No diastolic murmur, No edema, No gallop, No irregular rhythm, No jugular venous distention (JVD), No murmurs/extra sounds, No other, No rub, No systolic murmur Gastrointestinal: nl liver, spleen, non-tender, soft, No ascites, No bowel sounds, No distended, No firm, No hepatomegaly, No mass , No other, No rebound or guarding, No splenomegaly, No surgical scars, No tender Musculoskeletal: nl extremities to inspection Extremities: normal pulses, No calf tenderness, No clubbing, No cyanosis, No edema, No other, No palpable cord, No pitting pedal edema, No tenderness Neurological: OPERATIONAL RISK CONSULTANT II-XII intact, nl mental status, nl speech Skin: nl turgor Lymph: nl lymph nodes Results Result Diagram: 08/28/16 0645 08/28/16 0645 Results 24 hrs Laboratory Tests Test 08/28/16 06:45 White Blood Count 24.5 H Red Blood Count 3.90 L Hemoglobin 12.4 L Hematocrit 35.8 L Mean Corpuscular Volume 91.8 Mean Corpuscular Hemoglobin 31.8 Mean Corpuscular Hemoglobin Concent 34.6 Red Cell Distribution Width 13.8 Platelet Count 243 Mean Platelet Volume 9.3 Neutrophils % 94.6 H Lymphocytes % 1.2 L Monocytes % 3.2 Eosinophils % 0.0 Basophils % 0.1 Nucleated Red Blood Cells % 0.0 Neutrophils # 23.2 H Lymphocytes # 0.3 L Monocytes # 0.8 Eosinophils # 0.0 Basophils # 0.0 Nucleated Red Blood Cells # 0.0 Sodium Level 131 L Potassium Level 4.1 Chloride Level 95 L Carbon Dioxide Level 29 Anion Gap 11 Blood Urea Nitrogen 20 Creatinine 0.66 Glucose Level 116 Calcium Level 8.7 Magnesium Level 2.0 Medications Medications Current Medications Ondansetron HCl (Zofran Inj) 4 mg Q6H PRN IV NAUSEA AND/OR VOMITING; Start at 18:30 Acetaminophen (Tylenol Tab) 650 mg Q6H PRN PO PAIN LEVEL 1-3 OR FEVER; Start at 18:30 Acetaminophen/ Hydrocodone Bitart ([place] (5/325)) 1 tab Q6H PRN PO MODERATE PAIN LEVEL 4-6 Last administered on 08/27/16 04:19; Admin Dose 1 TAB; Start at 18:30 Morphine Sulfate (morphine) 2 mg Q4H PRN IV SEVERE PAIN LEVEL 7-10 Last administered on 08/28/16 12:33; Admin Dose 2 MG; Start 08/25/16 at 18:30 Docusate Sodium (Colace) 100 mg Q12H PRN PO CONSTIPATION; Start 08/25/16 at 18: 30 Magnesium Hydroxide (Milk Of Mag) 30 ml DAILY PRN PO CONSTIPATION; Start at 18:30 Sodium Biphosphate/ Sodium Phosphate (Fleet Enema) 133 ml DAILY PRN [place] CONSTIPATION; Start 08/25/16 at 18:30 Heparin Sodium (Porcine) 5000 unit 5,000 unit Q12 SC ; Start 08/25/16 at 21:00 Sodium Chloride (1/2 NS) 1,000 ml @ 75 mls/hr [id number] IV Last administered on 08/28/16 08:55; Admin Dose 75 MLS/HR; Start 08/25/16 at 18:04 Lorazepam 0.5 mg 0.5 mg Q6H PRN IV ANXIETY Last administered on 08/28/16 03:02 ; Admin Dose 0.5 MG; Start 08/25/16 at 18:30 Levofloxacin/ Dextrose (Levaquin 750 Mg/ D5W 150 ml (Pmx)) 150 ml @ 100 mls/hr DAILY IVPB Last administered on 08/28/16 08:54; Admin Dose 100 MLS/HR; Start 08/26/16 at 09:00 Hydralazine HCl (Apresoline) 10 mg Q6H PRN IV ELEVATED BLOOD PRESSURE; Start at 18:30 Clonidine (Catapres) 0.1 mg Q6H PRN PO ELEVATED BLOOD PRESSURE; Start 08/25/16 at 18:30 Nitroglycerin (Nitroglycerin (Sl Tab) 0.4 Mg) 1 tab Q5M PRN SL ANGINA Last administered on 08/25/16 20:42; Admin Dose 1 TAB; Start 08/25/16 at 18:30 Pantoprazole (Protonix Tab) 40 mg DAILY@06 PO Last administered on 08/28/16 06 :37; Admin Dose 40 MG; Start 08/26/16 at 06:00 Nicotine (Nicoderm 21 Mg/ 24hr) 1 patch DAILY TRANSDERM Last administered on 08:54; Admin Dose 1 PATCH; Start 08/25/16 at 19:30 Salmeterol Xinafoate/ Fluticasone (Advair 250/50 Diskus) 1 inh BID INH Last administered on 08/28/16 08:53; Admin Dose 1 INH; Start 08/25/16 at 21:00 Methylprednisolone Sodium Succinate (Solu-Medrol) 60 mg Q6 IV Last administered on 08/28/16 12:23; Admin Dose 60 MG; Start 5/15/17 at 18:00 NICKO TAVARES MD August 28, 2016 14:25
[2016-08-28] MEDS: METHYLPREDNISOLONE 40 MG INJ IV SCH ×2 (17:37→23:14)
[2016-08-29] VITALS (13 sets, daily range): BP systolic 117–140; BP diastolic 67–81; PULSE 86–112; RESP 18–20
[2016-08-29] MEDS: ALBUTEROL/IPRATROPIUM (NEB) 3 ML AMP HHN SCH ×6 (01:07→21:26)
[2016-08-29] MEDS: morphine 2 MG INJ IV PRN ×5 (04:05→22:16)
[2016-08-29] MEDS: PANTOPRAZOLE (EC) 40 MG TAB PO SCH (06:18)
[2016-08-29] MEDS: METHYLPREDNISOLONE 40 MG INJ IV SCH ×3 (06:18→20:37)
[2016-08-29] MEDS: SALMETEROL/FLUTICASONE 250/50 INHA INH SCH ×2 (07:59→20:37)
[2016-08-29] MEDS: NICOTINE (21 MG/24 HR) PATCH TRANSDERM SCH (08:00)
[2016-08-29] MEDS: LEVOFLOXACIN 750MG/D5W (PMX) 150 ML IVPB SCH (08:00)
[2016-08-29] MEDS: HEPARIN 5,000 UNIT/0.5 ML VIAL SC SCH ×3 (08:01→20:39)
[2016-08-29 08:41] LABS: CALCIUM 8.8 mg/dl (8.4-10.2); CREATININE 0.66 mg/dl (0.61-1.24); POTASSIUM 4.5 mmol/L (3.5-5.1)
[2016-08-29 08:58] LABS: ADD SCAN DIFF NO
[2016-08-29 09:07] LABS: ABNORMAL IP MESSAGE 1; BASOPHILS % 0.1 % (0.0-2.0); HEMATOCRIT 35.8 % (42.0-52.0); HEMOGLOBIN 12.1 g/dl (14.0-18.0); LYMPHOCYTES # 0.3 10^3/ul (0.8-2.9); LYMPHOCYTES % 1.9 % (15.0-51.0); MEAN CORPUSCULAR HEMOGLOBIN 31.5 pg (29.0-33.0); MEAN CORPUSCULAR HGB CONC 33.8 g/dl (32.0-37.0); MEAN CORPUSCULAR VOLUME 93.2 fl (82.0-101.0); MEAN PLATELET VOLUME 9.2 fl (7.4-10.4); MONOCYTE # 0.8 10^3/ul (0.3-0.9); MONOCYTES % 4.2 % (0.0-11.0); NEUTROPHIL # 16.5 10^3/ul (1.6-7.5); NEUTROPHILS % 92.9 % (39.0-77.0); PLATELET COUNT 213 10^3/UL (140-415); RED BLOOD COUNT 3.84 10^6/ul (4.70-6.10); RED CELL DISTRIBUTION WIDTH 13.6 % (11.5-14.5); WHITE BLOOD COUNT 17.8 10^3/ul (4.8-10.8)
[2016-08-29] MEDS: LORAZEPAM 2 MG INJ IV PRN ×2 (11:55→20:39)
--- NOTE | 2016-08-29 13:38 | PN ---
Date/Time of Note Date/Time of Note DATE: 08/29/16 TIME: 13:37 Assessment/Plan VTE Prophylaxis VTE Prophylaxis Intervention: heparin Lines/Catheters IV C[facility]ter Type (from [facility]): Peripheral IV Assessment/Plan Assessment/Plan 1. Chronic obstructive pulmonary disease exacerbation. Continue inhaled bronchodilators. Continue tapering dose of steroids. 2. Leukocytosis, most probably secondary to steroid use. Continue empiric antibiotics for any underlying acute bronchitis. 3. Nicotine use. Continue nicotine patch. 4. Hyponatremia. Etiology is unclear. Continue IV fluid normal saline. 5. Acute on chronic hypercapnic and hypoxic respiratory failure secondary to chronic obstructive pulmonary disease exacerbation. Continue inhaled bronchodilators. Continue supplemental oxygen. 6. Deep venous thrombosis prophylaxis. Subcutaneous heparin. Subjective 24 Hr Interval Summary Free Text/Dictation still with shortness of breath Exam/Review of Systems Vital Signs Vitals Vital Signs Date Time Temp Pulse Resp B/P Pulse Ox O2 Delivery O2 Flow Rate FiO2 08/29/16 12:10 94 18 96 Nasal Cannula 2.0 08/29/16 11:38 98.0 118/74 08/29/16 09:05 21 Intake and Output 08/28/16 08/28/16 08/29/16 15:00 23:00 07:00 Intake Total 150 ml 1350 ml 1550 ml Balance 150 ml 1350 ml 1550 ml Exam Constitutional: alert, oriented Psych: nl mood/affect, no complaints Head: atraumatic, normocephalic Eyes: EOMI, PERRL, nl conjunctiva, nl lids, nl sclera ENMT: nl external ears & nose, nl lips & teeth, nl nasal mucosa & septum Neck: non-tender, supple Respiratory: diminished breath sounds Cardiovascular: nl pulses, regular rate and rhythm Gastrointestinal: nl liver, spleen, non-tender, soft, No ascites, No bowel sounds, No distended, No firm, No hepatomegaly, No mass , No other, No rebound or guarding, No splenomegaly, No surgical scars, No tender Musculoskeletal: nl extremities to inspection Extremities: normal pulses, No calf tenderness, No clubbing, No cyanosis, No edema, No other, No palpable cord, No pitting pedal edema, No tenderness Neurological: 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 II-XII intact, nl mental status, nl speech, nl strength Lymph: nl lymph nodes Results Result Diagram: 08/29/1665408/29/16 0655 Results 24 hrs Laboratory Tests Test 08/29/16 06:55 White Blood Count 17.8 #H Red Blood Count 3.84 L Hemoglobin 12.1 L Hematocrit 35.8 L Mean Corpuscular Volume 93.2 Mean Corpuscular Hemoglobin 31.5 Mean Corpuscular Hemoglobin Concent 33.8 Red Cell Distribution Width 13.6 Platelet Count 213 Mean Platelet Volume 9.2 Neutrophils % 92.9 H Lymphocytes % 1.9 L Monocytes % 4.2 Eosinophils % 0.0 Basophils % 0.1 Nucleated Red Blood Cells % 0.0 Neutrophils # 16.5 H Lymphocytes # 0.3 L Monocytes # 0.8 Eosinophils # 0.0 Basophils # 0.0 Nucleated Red Blood Cells # 0.0 Sodium Level 128 L Potassium Level 4.5 Chloride Level 96 L Carbon Dioxide Level 29 Anion Gap 8 Blood Urea Nitrogen 21 H Creatinine 0.66 Glucose Level 137 Calcium Level 8.8 Magnesium Level 2.0 Medications Medications Current Medications Ondansetron HCl (Zofran Inj) 4 mg Q6H PRN IV NAUSEA AND/OR VOMITING; Start at 18:30 Acetaminophen (Tylenol Tab) 650 mg Q6H PRN PO PAIN LEVEL 1-3 OR FEVER; Start at 18:30 Acetaminophen/ Hydrocodone Bitart ([place] (5/325)) 1 tab Q6H PRN PO MODERATE PAIN LEVEL 4-6 Last administered on 08/27/16 04:19; Admin Dose 1 TAB; Start at 18:30 Morphine Sulfate (morphine) 2 mg Q4H PRN IV SEVERE PAIN LEVEL 7-10 Last administered on 08/29/16 12:43; Admin Dose 2 MG; Start 08/25/16 at 18:30 Docusate Sodium (Colace) 100 mg Q12H PRN PO CONSTIPATION; Start 08/25/16 at 18: 30 Magnesium Hydroxide (Milk Of Mag) 30 ml DAILY PRN PO CONSTIPATION; Start at 18:30 Sodium Biphosphate/ Sodium Phosphate (Fleet Enema) 133 ml DAILY PRN [place] CONSTIPATION; Start 08/25/16 at 18:30 Heparin Sodium (Porcine) 5000 unit 5,000 unit Q12 SC ; Start 08/25/16 at 21:00 Sodium Chloride (1/2 NS) 1,000 ml @ 75 mls/hr [id number] IV Last administered on 08/28/16 23:14; Admin Dose 75 MLS/HR; Start 08/25/16 at 18:04 Lorazepam 0.5 mg 0.5 mg Q6H PRN IV ANXIETY Last administered on 08/29/16 11:55 ; Admin Dose 0.5 MG; Start 08/25/16 at 18:30 Levofloxacin/ Dextrose (Levaquin 750 Mg/ D5W 150 ml (Pmx)) 150 ml @ 100 mls/hr DAILY IVPB Last administered on 08/29/16 08:00; Admin Dose 100 MLS/HR; Start 08/26/16 at 09:00 Hydralazine HCl (Apresoline) 10 mg Q6H PRN IV ELEVATED BLOOD PRESSURE; Start at 18:30 Clonidine (Catapres) 0.1 mg Q6H PRN PO ELEVATED BLOOD PRESSURE; Start 08/25/16 at 18:30 Nitroglycerin (Nitroglycerin (Sl Tab) 0.4 Mg) 1 tab Q5M PRN SL ANGINA Last administered on 08/25/16 20:42; Admin Dose 1 TAB; Start 08/25/16 at 18:30 Pantoprazole (Protonix Tab) 40 mg DAILY@06 PO Last administered on 08/29/16 06 :18; Admin Dose 40 MG; Start 08/26/16 at 06:00 Nicotine (Nicoderm 21 Mg/ 24hr) 1 patch DAILY TRANSDERM Last administered on 08:00; Admin Dose 1 PATCH; Start 08/25/16 at 19:30 Salmeterol Xinafoate/ Fluticasone (Advair 250/50 Diskus) 1 inh BID INH Last administered on 08/29/16 07:59; Admin Dose 1 INH; Start 08/25/16 at 21:00 Methylprednisolone Sodium Succinate (Solu-Medrol) 40 mg Q6 IV Last administered on 08/29/16 11:50; Admin Dose 40 MG; Start 08/28/16 at 18:00 NICKO TAVARES MD August 29, 2016 13:38
[2016-08-29] MEDS: SOD CHLORIDE 0.45% 1,000 ML IV SCH (17:49)
[2016-08-30] VITALS (11 sets, daily range): BP systolic 116–150; BP diastolic 60–88; PULSE 92–109; RESP 16–20
[2016-08-30] MEDS: ALBUTEROL/IPRATROPIUM (NEB) 3 ML AMP HHN SCH ×6 (01:24→21:29)
[2016-08-30] MEDS: morphine 2 MG INJ IV PRN ×3 (02:11→17:29)
[2016-08-30] MEDS: PANTOPRAZOLE (EC) 40 MG TAB PO SCH (05:30)
[2016-08-30] MEDS: SOD CHLORIDE 0.45% 1,000 ML IV SCH ×2 (05:33→17:31)
[2016-08-30 07:46] LABS: ADD SCAN DIFF NO
[2016-08-30 07:47] LABS: BASOPHILS % 0.1 % (0.0-2.0); HEMATOCRIT 36.8 % (42.0-52.0); HEMOGLOBIN 12.5 g/dl (14.0-18.0); LYMPHOCYTES # 0.7 10^3/ul (0.8-2.9); LYMPHOCYTES % 4.2 % (15.0-51.0); MEAN CORPUSCULAR HEMOGLOBIN 31.7 pg (29.0-33.0); MEAN CORPUSCULAR VOLUME 93.4 fl (82.0-101.0); MEAN PLATELET VOLUME 9.4 fl (7.4-10.4); MONOCYTE # 1.2 10^3/ul (0.3-0.9); MONOCYTES % 7.2 % (0.0-11.0); NEUTROPHIL # 14.7 10^3/ul (1.6-7.5); NEUTROPHILS % 87.4 % (39.0-77.0); PLATELET COUNT 206 10^3/UL (140-415); RED BLOOD COUNT 3.94 10^6/ul (4.70-6.10); RED CELL DISTRIBUTION WIDTH 13.7 % (11.5-14.5); WHITE BLOOD COUNT 16.8 10^3/ul (4.8-10.8)
[2016-08-30] MEDS: NICOTINE (21 MG/24 HR) PATCH TRANSDERM SCH (08:17)
[2016-08-30] MEDS: METHYLPREDNISOLONE 40 MG INJ IV SCH ×2 (08:17→20:37)
[2016-08-30] MEDS: SALMETEROL/FLUTICASONE 250/50 INHA INH SCH ×2 (08:18→20:40)
[2016-08-30] MEDS: LEVOFLOXACIN 750MG/D5W (PMX) 150 ML IVPB SCH (08:20)
[2016-08-30] MEDS: HEPARIN 5,000 UNIT/0.5 ML VIAL SC SCH ×3 (08:20→21:00)
[2016-08-30 09:18] LABS: POTASSIUM 4.3 mmol/L (3.5-5.1)
[2016-08-30 09:21] LABS: CREATININE 0.72 mg/dl (0.61-1.24)
[2016-08-30 09:22] LABS: CALCIUM 8.8 mg/dl (8.4-10.2)
[2016-08-30] MEDS: LORAZEPAM 2 MG INJ IV PRN ×2 (11:04→20:49)
--- NOTE | 2016-08-30 13:33 | PN ---
Date/Time of Note Date/Time of Note DATE: 08/30/16 TIME: 13:30 Assessment/Plan VTE Prophylaxis VTE Prophylaxis Intervention: heparin Lines/Catheters IV C[facility]ter Type (from [facility] Peripheral IV Urinary Cath still in place: No Assessment/Plan Assessment/Plan 1. Chronic obstructive pulmonary disease exacerbation. slowly improving, on nebulizer and steroid. 2. Leukocytosis, most probably secondary to steroid use. 3. Nicotine use. Continue nicotine patch. 4. Hyponatremia. improving 5. Acute on chronic hypercapnic and hypoxic respiratory failure secondary to chronic obstructive pulmonary disease exacerbation. Continue inhaled bronchodilators. Continue supplemental oxygen. 6. Deep venous thrombosis prophylaxis. Subcutaneous heparin. Subjective 24 Hr Interval Summary Free Text/Dictation less shortness of breath. no fever or chills Exam/Review of Systems Vital Signs Vitals Vital Signs Date Time Temp Pulse Resp B/P Pulse Ox O2 Delivery O2 Flow Rate FiO2 08/30/16 12:46 109 08/30/16 11:44 98.2 20 136/83 99 08/30/16 05:06 Nasal Cannula 2.0 08/29/16 09:05 21 Intake and Output 08/29/16 08/29/16 08/30/16 15:00 23:00 07:00 Intake Total 1850 ml 1300 ml Balance 1850 ml 1300 ml Exam Constitutional: alert, oriented, well developed Psych: nl mood/affect, no complaints Head: atraumatic, normocephalic Eyes: EOMI, nl conjunctiva, nl lids ENMT: nl external ears & nose, nl lips & teeth, nl nasal mucosa & septum Neck: non-tender, supple Respiratory: diminished breath sounds, wheezing Cardiovascular: nl pulses, regular rate and rhythm, No S3, No S4, No bruits, No diastolic murmur, No edema, No gallop, No irregular rhythm, No jugular venous distention (JVD), No murmurs/extra sounds, No other, No rub, No systolic murmur Gastrointestinal: non-tender, soft, No ascites, No bowel sounds, No distended, No firm, No hepatomegaly, No mass , No nl liver, spleen, No other, No rebound or guarding, No splenomegaly, No surgical scars, No tender Musculoskeletal: nl extremities to inspection Extremities: normal pulses, No calf tenderness, No clubbing, No cyanosis, No edema, No other, No palpable cord, No pitting pedal edema, No tenderness Neurological: 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 SUPERVISOR II-XII 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, nl mental status, nl speech, nl strength Skin: nl turgor Lymph: nl lymph nodes Results Result Diagram: 08/30/16 0645 08/30/16 0645 Results 24 hrs Laboratory Tests Test 08/30/16 06:45 White Blood Count 16.8 H Red Blood Count 3.94 L Hemoglobin 12.5 L Hematocrit 36.8 L Mean Corpuscular Volume 93.4 Mean Corpuscular Hemoglobin 31.7 Mean Corpuscular Hemoglobin Concent 34.0 Red Cell Distribution Width 13.7 Platelet Count 206 Mean Platelet Volume 9.4 Neutrophils % 87.4 H Lymphocytes % 4.2 L Monocytes % 7.2 Eosinophils % 0.0 Basophils % 0.1 Nucleated Red Blood Cells % 0.0 Neutrophils # 14.7 H Lymphocytes # 0.7 L Monocytes # 1.2 H Eosinophils # 0.0 Basophils # 0.0 Nucleated Red Blood Cells # 0.0 Sodium Level 133 L Potassium Level 4.3 Chloride Level 95 L Carbon Dioxide Level 31 Anion Gap 11 Blood Urea Nitrogen 22 H Creatinine 0.72 Glucose Level 106 Calcium Level 8.8 Magnesium Level 2.1 Medications Medications Current Medications Ondansetron HCl (Zofran Inj) 4 mg Q6H PRN IV NAUSEA AND/OR VOMITING; Start at 18:30 Acetaminophen (Tylenol Tab) 650 mg Q6H PRN PO PAIN LEVEL 1-3 OR FEVER; Start at 18:30 Acetaminophen/ Hydrocodone Bitart ([place] (5/325)) 1 tab Q6H PRN PO MODERATE PAIN LEVEL 4-6 Last administered on 08/27/16 04:19; Admin Dose 1 TAB; Start at 18:30 Morphine Sulfate (morphine) 2 mg Q4H PRN IV SEVERE PAIN LEVEL 7-10 Last administered on 08/30/16 08:16; Admin Dose 2 MG; Start 08/25/16 at 18:30 Docusate Sodium (Colace) 100 mg Q12H PRN PO CONSTIPATION; Start 08/25/16 at 18: 30 Magnesium Hydroxide (Milk Of Mag) 30 ml DAILY PRN PO CONSTIPATION; Start at 18:30 Sodium Biphosphate/ Sodium Phosphate (Fleet Enema) 133 ml DAILY PRN [place] CONSTIPATION; Start 08/25/16 at 18:30 Heparin Sodium (Porcine) 5000 unit 5,000 unit Q12 SC Last administered on 20:39; Admin Dose 5,000 UNIT; Start 08/25/16 at 21:00 Sodium Chloride (1/2 NS) 1,000 ml @ 75 mls/hr [id number] IV Last administered on 08/30/16 05:33; Admin Dose 75 MLS/HR; Start 08/25/16 at 18:04 Lorazepam 0.5 mg 0.5 mg Q6H PRN IV ANXIETY Last administered on 08/30/16 11:04 ; Admin Dose 0.5 MG; Start 08/25/16 at 18:30 Levofloxacin/ Dextrose (Levaquin 750 Mg/ D5W 150 ml (Pmx)) 150 ml @ 100 mls/hr DAILY IVPB Last administered on 08/30/16 08:20; Admin Dose 100 MLS/HR; Start 08/26/16 at 09:00 Hydralazine HCl (Apresoline) 10 mg Q6H PRN IV ELEVATED BLOOD PRESSURE; Start at 18:30 Clonidine (Catapres) 0.1 mg Q6H PRN PO ELEVATED BLOOD PRESSURE; Start 08/25/16 at 18:30 Nitroglycerin (Nitroglycerin (Sl Tab) 0.4 Mg) 1 tab Q5M PRN SL ANGINA Last administered on 08/25/16 20:42; Admin Dose 1 TAB; Start 08/25/16 at 18:30 Pantoprazole (Protonix Tab) 40 mg DAILY@06 PO Last administered on 08/30/16 05 :30; Admin Dose 40 MG; Start 08/26/16 at 06:00 Nicotine (Nicoderm 21 Mg/ 24hr) 1 patch DAILY TRANSDERM Last administered on 08:17; Admin Dose 1 PATCH; Start 08/25/16 at 19:30 Salmeterol Xinafoate/ Fluticasone (Advair 250/50 Diskus) 1 inh BID INH Last administered on 08/30/16 08:18; Admin Dose 1 INH; Start 08/25/16 at 21:00 Methylprednisolone Sodium Succinate (Solu-Medrol) 40 mg Q12 IV Last administered on 5/18/17at 08:17; Admin Dose 40 MG; Start 08/29/16 at 21:00 NICKO TAVARES MD August 30, 2016 13:33
[2016-08-31] VITALS (9 sets, daily range): BP systolic 115–129; BP diastolic 75–80; PULSE 90–108; RESP 16–19
[2016-08-31] MEDS: ALBUTEROL/IPRATROPIUM (NEB) 3 ML AMP HHN SCH ×4 (00:58→13:41)
[2016-08-31] MEDS: morphine 2 MG INJ IV PRN ×3 (01:22→13:56)
[2016-08-31] MEDS: SOD CHLORIDE 0.45% 1,000 ML IV SCH (06:12)
[2016-08-31] MEDS: PANTOPRAZOLE (EC) 40 MG TAB PO SCH (06:12)
[2016-08-31] MEDS: HEPARIN 5,000 UNIT/0.5 ML VIAL SC SCH (08:25)
[2016-08-31] MEDS: SALMETEROL/FLUTICASONE 250/50 INHA INH SCH (08:29)
[2016-08-31] MEDS: LEVOFLOXACIN 750MG/D5W (PMX) 150 ML IVPB SCH (08:29)
[2016-08-31] MEDS: NICOTINE (21 MG/24 HR) PATCH TRANSDERM SCH (08:29)
[2016-08-31] MEDS: METHYLPREDNISOLONE 40 MG INJ IV SCH (08:29)
[2016-08-31 09:38] LABS: ADD SCAN DIFF NO
[2016-08-31 09:41] LABS: BASOPHILS % 0.2 % (0.0-2.0); HEMATOCRIT 43.4 % (42.0-52.0); HEMOGLOBIN 14.7 g/dl (14.0-18.0); LYMPHOCYTES # 1.2 10^3/ul (0.8-2.9); LYMPHOCYTES % 9.2 % (15.0-51.0); MEAN CORPUSCULAR HEMOGLOBIN 31.8 pg (29.0-33.0); MEAN CORPUSCULAR HGB CONC 33.9 g/dl (32.0-37.0); MEAN CORPUSCULAR VOLUME 93.9 fl (82.0-101.0); MONOCYTE # 1.3 10^3/ul (0.3-0.9); MONOCYTES % 9.8 % (0.0-11.0); NEUTROPHIL # 10.5 10^3/ul (1.6-7.5); NEUTROPHILS % 79.8 % (39.0-77.0); PLATELET COUNT 242 10^3/UL (140-415); RED BLOOD COUNT 4.62 10^6/ul (4.70-6.10); RED CELL DISTRIBUTION WIDTH 13.8 % (11.5-14.5); WHITE BLOOD COUNT 13.2 10^3/ul (4.8-10.8)
[2016-08-31 09:59] LABS: POTASSIUM 4.1 mmol/L (3.5-5.1)
[2016-08-31 10:01] LABS: CREATININE 0.69 mg/dl (0.61-1.24)
[2016-08-31 10:02] LABS: CALCIUM 9.2 mg/dl (8.4-10.2)
[2016-08-31] MEDS ORDERED: IPRA3AMP HHN (14:27)
[2016-08-31] MEDS ORDERED: LEVO500T72 PO (14:27)
[2016-08-31] MEDS ORDERED: PRED20TA PO (14:27)
--- NOTE | 2016-08-31 14:31 | DS ---
Date/Time of Note Date/Time of Note DATE: 08/31/16 TIME: 14:27 Discharge Summary Admission/Discharge Info Admit Date/Time August 25, 2016 at 17:52 Discharge Date/Time Final Diagnosis 1. Chronic obstructive pulmonary disease exacerbation. improved, neb/levaquin and tapering dosage of prednisone, follow up with PCP 2. Acute on chronic hypercapnic and hypoxic respiratory failure secondary to chronic obstructive pulmonary disease exacerbation. improved, SpO2 89-93% 3. Nicotine use. strongly advise to quit 4. Hyponatremia. improved Patient Condition: Stable Hospital Course A 61-year-old male with past medical history of COPD and a longstanding smoking history, still a current smoker, who has been having shortness of breath and some chest tightness that has been going on for the last 24 hours. He had some nausea symptoms as well and some pain with deep inspiration for about 1 hour as well. He apparently has been using home nebulizer without relief. Continues to smokes cigarettes daily. He also had some mild yellow-green sputum as well. Denies any headache, dizziness, or loss of consciousness. No upper or lower GI bleeding. No fevers or chills. No diarrhea or constipation. When he came in today, he was given breathing treatments as well as Solu-Medrol and magnesium. He was found to have significant wheezing on exam and signs of COPD exacerbation. Patient is treated with nebulizer, levaquin, and SoluMedrol along with O2. Symptoms improved. Patient is strongly advised to quit smoking. SpO2 is 89-93% on room air. Patient has oxygen, nebulizer at home. Home Meds Active Scripts Ipratropium-Albuterol (Ipratropium-Albuterol) 0.5-3 Mg/3 Ml Ampul.neb, 3 ML HHN Q2H RESP THERAPY Y for SHORTNESS OF BREATH for 30 Days Prov:NICKO TAVARES MD 08/31/16 Levofloxacin* (Levaquin*) 500 Mg Tablet, 500 MG PO DAILY for 5 Days, TAB Prov:NICKO TAVARES MD 08/31/16 Prednisone (Prednisone) 20 Mg Tablet, 20 MG PO DAILY for 3 Days, TAB Prov:NICKO TAVARES MD 08/31/16 Reported Medications Budesonide-Formoterol Fumarate* (Symbicort*) 160-4.5 Hfa.aer.ad, 2 PUFF INHALATION BID, #1 EACH 11/24/15 Tiotropium [place]* (Spiriva*) 18 Mcg Cap.w.dev, 1 CAP INHALATION DAILY, #30 CAP 11/24/15 Pantoprazole* (Protonix*) 40 Mg Tablet.dr, 40 MG PO DAILY, TAB 11/24/15 Albuterol Sulfate* (Ventolin HFA*) 18 Gm Hfa.aer.ad, 2 PUFF INHALATION Q6H, #1 INHALER 11/24/15 Discontinued Scripts Prednisone* (Prednisone*) 20 Mg Tab, 40 MG PO DAILY, #4 TAB Prov:ABA SANTOS DO 01/11/16 Albuterol Sulfate* (Ventolin HFA*) 18 Gm Hfa.aer.ad, 2 PUFF INHALATION Q4H, #1 INHALER Prov:ABA SANTOS DO 01/11/16 Follow-up Plan PCP in one week Primary Care Provider Not On Staff Doctor Pending Labs Laboratory Tests Test 08/31/16 09:15 White Blood Count 13.210^3/ul (4.8-10.8) Red Blood Count 4.6210^6/ul (4.70-6.10) Hemoglobin 14.7g/dl (14.0-18.0) Hematocrit 43.4% (42.0-52.0) Mean Corpuscular Volume 93.9fl (82.0-101.0) Mean Corpuscular Hemoglobin 31.8pg (29.0-33.0) Mean Corpuscular Hemoglobin Concent 33.9g/dl (32.0-37.0) Red Cell Distribution Width 13.8% (11.5-14.5) Platelet Count 35919^3/UL (140-415) Mean Platelet Volume 9.0fl (7.4-10.4) Neutrophils % 79.8% (39.0-77.0) Lymphocytes % 9.2% (15.0-51.0) Monocytes % 9.8% (0.0-11.0) Eosinophils % 0.0% (0.0-7.0) Basophils % 0.2% (0.0-2.0) Nucleated Red Blood Cells % 0.0/100WBC (0.0-0.0) Neutrophils # 10.510^3/ul (1.6-7.5) Lymphocytes # 1.210^3/ul (0.8-2.9) Monocytes # 1.310^3/ul (0.3-0.9) Eosinophils # 0.010^3/ul (0.0-0.5) Basophils # 0.010^3/ul (0.0-0.1) Nucleated Red Blood Cells # 0.010^3/ul (0.0-0.0) Sodium Level 134mmol/L (135-144) Potassium Level 4.1mmol/L (3.5-5.1) Chloride Level 92mmol/L (97-110) Carbon Dioxide Level 33mmol/L (21-31) Anion Gap 13 (8-16) Blood Urea Nitrogen 20mg/dl (7-20) Creatinine 0.69mg/dl (0.61-1.24) Glucose Level 93mg/dl (70-220) Calcium Level 9.2mg/dl (8.4-10.2) NICKO TAVARES MD August 31, 2016 14:31
== END 2016-08-31 15:55 | disposition home or self-care (01) | DRG 190 ==
LOC: E/R 14:30 → MS4 17:52
PROVIDERS: ADMIT Internal Medicine; ATTEND Internal Medicine
DX: J44.1 Chronic obstructive pulmonary disease with (acute) exacerbation (principal); J96.22 Acute and chronic respiratory failure with hypercapnia; J96.21 Acute and chronic respiratory failure with hypoxia; E87.1 Hypo-osmolality and hyponatremia; Z72.0 Tobacco use; F17.200 Nicotine dependence, unspecified, uncomplicated
CPT/HCPCS: 36415; 36600; 71010; 80048; 80061; 82803; 83036; 83735; 84100; 84439; 84443; 85025; 93005; 93306; 94640; 94644; 96365; 96366; 96368; 96375; 97110; 97116; 97162; 97530; J0456; J1644; J1956; J2060; J2270; J2405; J2920; J2930

== ENCOUNTER 2017-01-16 18:02 | Emergency (ER) | payer OTHER ==
[~2017-01-16] VITALS: Ht 170.2 cm; Wt 65.0 kg
[~2017-01-16 18:02] MED LIST changes: +IPRA3AMP HHN; +LEVO500T72 PO
[2017-01-16 18:09] VITALS: Ht 170.2 cm; Wt 65.0 kg
[2017-01-16] MEDS ORDERED: IPRATROPIUM (NEB) 0.5 MG/2.5 ML AMP INH STA (18:20)
[2017-01-16] MEDS ORDERED: METHYLPREDNISOLONE 125 MG INJ IV STA (18:20)
[2017-01-16] MEDS ORDERED: IPRATROPIUM (NEB) 0.5 MG/2.5 ML AMP ONE (18:20)
[2017-01-16] MEDS ORDERED: ALBUTEROL 0.5% (NEB) 2.5 MG/0.5 ML AMP INH STA (18:20)
[2017-01-16] MEDS ORDERED: ALBUTEROL 0.5% (NEB) 2.5 MG/0.5 ML AMP ONE (18:20)
--- NOTE | 2017-01-16 18:54 | RADRPT ---
PROCEDURE: Chest x-ray CLINICAL INDICATION: Shortness of breath TECHNIQUE: Chest single view COMPARISON: 08/25/2016 FINDINGS: The heart is normal in size. The pulmonary vessels are normal in caliber. As before there is hyperi nflation lungs suggesting underlying COPD. Mild scarring is now in the lung apices. No acute infiltr ates are seen. Costophrenic angles are sharp. IMPRESSION: No acute cardiopulmonary disease. Persistent hyperinflation of the lungs suggesting underlying COPD RPTAT: HH .Pardeep Castellanos MD, MD Date Time Electronically viewed and signed by .Pardeep Castellanos MD, on 01/16/2017 18:54 .W/
[2017-01-16 19:10] LABS: BASOPHIL # 0.1 10^3/ul (0.0-0.1); BASOPHILS % 1.2 % (0.0-2.0); HEMATOCRIT 42.7 % (42.0-52.0); HEMOGLOBIN 14.2 g/dl (14.0-18.0); LYMPHOCYTES % 23.5 % (15.0-51.0); MEAN CORPUSCULAR HEMOGLOBIN 30.7 pg (29.0-33.0); MEAN CORPUSCULAR HGB CONC 33.3 g/dl (32.0-37.0); MEAN CORPUSCULAR VOLUME 92.2 fl (82.0-101.0); MEAN PLATELET VOLUME 8.8 fl (7.4-10.4); MONOCYTE # 1.1 10^3/ul (0.3-0.9); MONOCYTES % 12.3 % (0.0-11.0); NEUTROPHIL # 5.4 10^3/ul (1.6-7.5); NEUTROPHILS % 62.5 % (39.0-77.0); PLATELET COUNT 293 10^3/UL (140-415); RED BLOOD COUNT 4.63 10^6/ul (4.70-6.10); WHITE BLOOD COUNT 8.6 10^3/ul (4.8-10.8)
[2017-01-16 19:16] LABS: ALANINE AMINOTRANSFERASE 21 IU/L (13-69); ALBUMIN 2.9 g/dl (3.3-4.9); ALBUMIN/GLOBULIN RATIO 1.31; ALKALINE PHOSPHATASE 76 IU/L (42-121); ANION GAP 10 (8-16); ASPARTATE AMINO TRANSFERASE 35 IU/L (15-46); BILIRUBIN,INDIRECT 0.3 mg/dl (0-1.1); BILIRUBIN,TOTAL 0.3 mg/dl (0.2-1.3); BLOOD UREA NITROGEN 10 mg/dl (7-20); CALCIUM 6.8 mg/dl (8.4-10.2); CARBON DIOXIDE 23 mmol/L (21-31); CHLORIDE 113 mmol/L (97-110); CREATININE 0.65 mg/dl (0.61-1.24); GLUCOSE 72 mg/dl (70-220); SODIUM 143 mmol/L (135-144); TOTAL PROTEIN 5.1 g/dl (6.1-8.1)
[2017-01-16 19:31] LABS: TROPONIN-I < 0.012 ng/ml (0.00-0.12)
[2017-01-16] MEDS ORDERED: POTASSIUM CHLORIDE (SR) 20 MEQ TAB PO STA (19:42)
[2017-01-16] MEDS ORDERED: LORA10TA3 PO (19:51)
[2017-01-16 21:15] VITALS: RESP 20
--- NOTE | 2017-01-16 22:41 | ERD ---
ER Documentation Chief Complaint Date/Time DATE: 01/16/17 TIME: 22:39 Chief Complaint BIBA FOR SOB,HX EMPHYSEMA HPI 61-year-old male with a long history of COPD, most recent admission June 2016 but never been intubated and chronic nicotine abuse presents to the ED by rescue ambulance complaining of a 2 day history of worsening shortness of breath and wheezing. Symptoms unrelieved by albuterol inhaler. Chronic cough productive of dark sputum which is unchanged. Denies chest pain or palpitations. No abdominal pain, nausea vomiting. Denies leg pain or swelling. No fevers or chills. ROS All systems reviewed and are negative except as per history of present illness. Medications Home Meds Active Scripts Ipratropium-Albuterol (Ipratropium-Albuterol) 0.5-3 Mg/3 Ml Ampul.neb, 3 ML HHN Q2H RESP THERAPY Y for SHORTNESS OF BREATH for 30 Days Prov:NICKO TAVARES MD 08/31/16 Reported Medications Loratadine* (Loratadine*) 10 Mg Tablet, 10 MG PO DAILY, #30 TAB 01/16/17 Budesonide-Formoterol Fumarate* (Symbicort*) 160-4.5 Hfa.aer.ad, 2 PUFF INHALATION BID, #1 EACH 11/24/15 Tiotropium [place]* (Spiriva*) 18 Mcg Cap.w.dev, 1 CAP INHALATION DAILY, #30 CAP 11/24/15 Pantoprazole* (Protonix*) 40 Mg Tablet.dr, 40 MG PO DAILY, TAB 11/24/15 Albuterol Sulfate* (Ventolin HFA*) 18 Gm Hfa.aer.ad, 2 PUFF INHALATION Q6H, #1 INHALER 11/24/15 Discontinued Scripts Levofloxacin* (Levaquin*) 500 Mg Tablet, 500 MG PO DAILY for 5 Days, TAB Prov:NICKO TAVARES MD 08/31/16 Prednisone (Prednisone) 20 Mg Tablet, 20 MG PO DAILY for 3 Days, TAB Prov:NICKO TAVARES MD 08/31/16 Allergies Allergies: Coded Allergies: No Known Allergy (Unverified , 01/16/17) PMhx/Soc Reviewed in chart. As per HPI. History of Surgery: Yes (RLE) Anesthesia Reaction: No Hx Neurological Disorder: No Hx Respiratory Disorders: Yes (COPD, Emphysema) Hx Cardiac Disorders: Yes (Weak heart) Hx Psychiatric Problems: No Hx Miscellaneous Medical Probl: No Hx Alcohol Use: No Hx Substance Use: No Hx Tobacco Use: Yes Smoking Status: Current every day smoker FmHx No stroke or cancer. Physical Exam Vitals Vital Signs Date Time Temp Pulse Resp B/P Pulse Ox O2 Delivery O2 Flow Rate FiO2 01/16/17 21:15 102 20 112/81 94 Room Air 01/16/17 18:43 Nasal Cannula 2 01/16/17 18:43 98.0 113 20 113/86 93 Room Air 01/16/17 18:26 110 20 99 Nasal Cannula 2.0 01/16/17 18:26 2.0 01/16/17 18:09 98.0 113 24 131/86 93 Physical Exam Const: Alert, moderate respiratory distress Head: Atraumatic Eyes: Normal Conjunctiva ENT: Normal External Ears, Nose and Mouth. Neck: Full range of motion.No JVD Resp: Breath sounds diminished bilaterally with expiratory wheezing and prolonged expiratory phase Cardio: Regular rate and rhythm, no murmurs Abd: Soft, non tender, non distended. Normal bowel sounds Skin: No petechiae or rashes Back: No midline or flank tenderness Ext: No cyanosis, or edema Neur: Awake and alert Psych: Normal Mood and Affect Result Diagram: 01/16/17182901/16/171829 Results 24 hrs Laboratory Tests Test 01/16/17 18:30 White Blood Count 8.610^3/ul Red Blood Count 4.6310^6/ul Hemoglobin 14.2g/dl Hematocrit 42.7% Mean Corpuscular Volume 92.2fl Mean Corpuscular Hemoglobin 30.7pg Mean Corpuscular Hemoglobin Concent 33.3g/dl Red Cell Distribution Width 14.0% Platelet Count 68613^3/UL Mean Platelet Volume 8.8fl Neutrophils % 62.5% Lymphocytes % 23.5% Monocytes % 12.3% Eosinophils % 0.0% Basophils % 1.2% Nucleated Red Blood Cells % 0.0/100WBC Neutrophils # 5.410^3/ul Lymphocytes # 2.010^3/ul Monocytes # 1.110^3/ul Eosinophils # 0.010^3/ul Basophils # 0.110^3/ul Nucleated Red Blood Cells # 0.010^3/ul Sodium Level 143mmol/L Potassium Level 3.0mmol/L Chloride Level 113mmol/L Carbon Dioxide Level 23mmol/L Anion Gap 10 Blood Urea Nitrogen 10mg/dl Creatinine 0.65mg/dl Glucose Level 72mg/dl Calcium Level 6.8mg/dl Total Bilirubin 0.3mg/dl Direct Bilirubin 0.00mg/dl Indirect Bilirubin 0.3mg/dl Aspartate Amino Transf (AST/SGOT) 35IU/L Alanine Aminotransferase (ALT/SGPT) 21IU/L Alkaline Phosphatase 76IU/L Troponin I < 0.012ng/ml Total Protein 5.1g/dl Albumin 2.9g/dl Globulin 2.20g/dl Albumin/Globulin Ratio 1.31 Current Medications Medications (Trade) Dose Ordered Sig/Michael Route PRN Reason Start Time Stop Time Status Last Admin Dose Admin Ipratropium [place] (Atrovent 0.02% (Neb)) 0.5 mg STK-MED ONCE .ROUTE 01/16/17 18:20 01/16/17 18:21 DC Albuterol (Proventil 0.5% (Neb)) 2.5 mg STK-MED ONCE .ROUTE 01/16/17 18:20 01/16/17 18:21 DC Albuterol (Proventil 0.5% (Neb)) 15 mg ONCE STAT INH 01/16/17 18:20 01/16/17 18:21 DC 01/16/17 18:25 Ipratropium [place] (Atrovent 0.02% (Neb)) 1 mg ONCE STAT INH 01/16/17 18:20 01/16/17 18:21 DC 01/16/17 18:25 Methylprednisolone Sodium Succinate (Solu-Medrol) 125 mg ONCE STAT IV 01/16/17 18:20 01/16/17 18:21 DC 01/16/17 18:55 Potassium Chloride (Klor-Con 20) 40 meq ONCE STAT PO 01/16/17 19:42 01/16/17 19:43 DC 01/16/17 20:15 Procedures/MDM DOCUMENTS REVIEWED: ED nurse, prior records including most recent admission in June 2016. ED COURSE: Solu-Medrol 125 mg IV. Nebulized albuterol 50 mg/Atrovent 1 mg REEXAMINATION/REEVALUATION: Time:22:30. Improved. No shortness of breath. Still with mild respiratory wheezing. Time: 23:20. No SOB. O2 saturation 92-93% on room air. Still with mild respiratory wheezing but patient does not want refused further nebulized albuterol. Wants to be discharged for MEDICAL DECISION MAKIN-year-old male with a long history of COPD, most recent admission June 2016 but never been intubated and chronic nicotine abuse presents to the ED by rescue ambulance complaining of a 2 day history of worsening shortness of breath and wheezing. Patient presents with symptoms consistent with acute COPD exacerbation. No radiographic evidence of pneumonia , CHF or pneumothorax.. Other etiologies considered including pulmonary embolism and acute coronary syndrome unlikely. Chronic bronchitis but no change in the color of sputum or fevers hence antibiotics not indicated. Stable for discharge with oral and inhaled corticosteroids, beta agonists, and outpatient follow-up as counseled. Observation Note: Time: 4 hours Family Hx: No Hypertension Evaluation: Multiple exams showed improving symptoms and no evidence of pneumonia. Counseled patient regarding diagnostic workup, diagnosis and need for followup. Understands to return to ED if symptoms recur, worsen or any other concerns. Smoking Cessation Therapy: Pt. was lectured for greater than 3 minutes on the health risks of continued smoking, strategies and the benefits of cessation. Departure Diagnosis: Primary Impression: Shortness of breath Additional Impressions: COPD exacerbation Nicotine abuse Condition: Stable (Improved) VERONA ROSENBERG MD Jan 16, 2017 22:41
[2017-01-16] MEDS ORDERED: PULM180 INHALATION (23:50)
[2017-01-16] MEDS ORDERED: ALBU8.5H3 INH (23:50)
[2017-01-16] MEDS ORDERED: PRED20TA PO (23:50)
[2017-01-17 00:01] VITALS: BP 108/73; PULSE 91; TEMP 98
== END 2017-01-17 00:06 | disposition home or self-care (01) ==
LOC: E/R 18:02
DX: R06.02 Shortness of breath (principal); J44.1 Chronic obstructive pulmonary disease with (acute) exacerbation; F17.210 Nicotine dependence, cigarettes, uncomplicated
CPT/HCPCS: 36415; 71010; 80053; 84484; 85025; 93005; 94644; 96374; J2930; Z7502; Z7610